=== PATIENT | female | born 1975 | race Caucasian/White ===

== ENCOUNTER 2017-04-20 17:20 | Inpatient (IN) | payer SELFPAY ==
[~2017-04-20] VITALS: Ht 170.2 cm; Wt 86.3 kg
[~2017-04-20 17:20] MED LIST: HYDR10TA16 PO; LORT5TAB PO; PROM25SU8 PO; Z.0.NO CURRENT MEDS
[2017-04-20 17:26] VITALS: BP 149/85; PULSE 93; RESP 15; TEMP 98.2; O2SAT 100
[2017-04-20 18:43] LABS: GLUCOSE,URINE NEG (NEG); KETONE, URINE NEG (NEG); NITRITE,URINE NEG (NEG)
--- NOTE | 2017-04-20 18:44 | PD ---
HPI Chief Complaint: Jaundice Time Seen by Provider: 17:37 Travel History International Travel<30 days: No Contact w/Intl Traveler<30days: No Traveled to known affect area: No History of Present Illness HPI 42-year-old female complains of abdominal pain, itching rash. Patient states that she had history of fracture clavicle in the past. Patient was given oxycodone for pain. Patient continued to take oxycodone for the past few years. Patient to get up oxycodone a year ago and started taking Suboxone. Patient stopped Suboxone about 2 weeks ago and went back to oxycodone again. Patient states that she takes oxycodone about 4 times a day. Patient states that she obtains the medication on the street. Patient denies any alcohol abuse. Patient denies other illicit drug abuse. Patient denies any headache. Patient denies any chest pain or shortness of breath. Patient states abdominal pain and cramping pain diffuse over the abdomen. Patient denies any pain radiation. Patient denies any dysuria or frequency. Patient denies any vaginal discharge or bleeding. Patient denies any fever chills. Patient denies any history hepatitis. Patient denies any chest recent history of travel. Patient states that she had dark urine recently. Patient also has been taking HydroxyCut, [id number] dietary supplement. PFSH Past Medical History ?: Not Social History Alcohol Use: Yes (WEEKENDS) Tobacco Use: Yes (ONLYWHEN I DRINK) Substance Use: No Allergies-Medications (Allergen,Severity, Reaction): Coded Allergies: No Known Allergies (Verified , 04/20/17) Reported Meds & Prescriptions Reported Meds & Active Scripts Active No Active Prescriptions or Reported Medications Review of Systems General / Constitutional: No: Fever Eyes: No: Visual changes HENT: No: Headaches Cardiovascular: No: Chest Pain or Discomfort Respiratory: No: Shortness of Breath Gastrointestinal: Positive: Abdominal Pain Genitourinary: No: Dysuria Musculoskeletal: No: Pain Skin: Positive Rash, Positive Itching Neurologic: No: Weakness Psychiatric: No: Depression Endocrine: No: Polydipsia Hematologic/Lymphatic: No: Easy Bruising Physical Exam Narrative GENERAL: Well-nourished, well-developed patient. SKIN: Focused skin assessment warm/dry. Jaundiced HEAD: Normocephalic. EYES: Bilateral scleral icterus. No injection or drainage. NECK: Supple, trachea midline. No JVD or lymphadenopathy. CARDIOVASCULAR: Regular rate and rhythm without murmurs, gallops, or rubs. RESPIRATORY: Breath sounds equal bilaterally. No accessory muscle use. GASTROINTESTINAL: Abdomen soft, non-tender, nondistended. MUSCULOSKELETAL: No cyanosis, or edema. BACK: Nontender without obvious deformity. No CVA tenderness. Neurologic exam normal. Data Data Last Documented VS Vital Signs Date Time Temp Pulse Resp B/P Pulse Ox O2 Delivery O2 Flow Rate FiO2 04/20/17 19:17 16 93 Room Air 04/20/17 19:17 92 148/84 04/20/17 17:26 98.2 Orders Complete Blood Count With Diff (04/20/17 17:41) Comprehensive Metabolic Panel (04/20/17 17:41) Prothrombin Time / Inr (Pt) (04/20/17 17:41) Act Partial Throm Time (Ptt) (04/20/17 17:41) Lipase (04/20/17 17:41) Urinalysis - C+S If Indicated (04/20/17 17:41) Ammonia (04/20/17 17:41) Ct Abd/Pel W Iv Contrast(Rout) (04/20/17 17:41) Iv Access Insert/Monitor (04/20/17 17:41) Hepatitis Profile (04/20/17 17:41) Iohexol 350 Inj (Omnipaque 350 Inj) (04/20/17 19:49) Sodium Chlor 0.9% 1000 Ml Inj (Ns 1000 M (04/20/17 20:15) Pantoprazole Inj (Protonix Inj) (04/20/17 20:15) Ondansetron Inj (Zofran Inj) (04/20/17 20:15) Admit Order (Ed Use Only) (04/20/17 20:22) Labs Laboratory Tests Test 04/20/17 04/20/17 18:20 18:25 Urine Color YELLOW Urine Turbidity CLEAR Urine pH 6.0 Urine Specific [place] 1.004 Urine Protein NEG mg/dL Urine Glucose (UA) NEG mg/dL Urine Ketones NEG mg/dL Urine Occult Blood MOD Urine Nitrite NEG Urine Bilirubin SMALL Urine Leukocyte Esterase TRACE Urine RBC 0-3 /hpf Urine WBC 3-5 /hpf Urine Squamous Epithelial 0-5 /hpf Cells Urine Amorphous Sediment SMALL Urine Bacteria FEW /hpf Microscopic Urinalysis Comment CULT NOT INDICATED White Blood Count 4.9 TH/MM3 Red Blood Count 4.24 MIL/MM3 Hemoglobin 12.3 GM/DL Hematocrit 37.2 % Mean Corpuscular Volume 87.7 FL Mean Corpuscular Hemoglobin 28.9 PG Mean Corpuscular Hemoglobin 33.0 % Concent Red Cell Distribution Width 12.7 % Platelet Count 308 TH/MM3 Mean Platelet Volume 7.8 FL Neutrophils (%) (Auto) 64.7 % Lymphocytes (%) (Auto) 23.1 % Monocytes (%) (Auto) 9.4 % Eosinophils (%) (Auto) 1.9 % Basophils (%) (Auto) 0.9 % Neutrophils # (Auto) 3.2 TH/MM3 Lymphocytes # (Auto) 1.1 TH/MM3 Monocytes # (Auto) 0.5 TH/MM3 Eosinophils # (Auto) 0.1 TH/MM3 Basophils # (Auto) 0.0 TH/MM3 CBC Comment DIFF FINAL Differential Comment Prothrombin Time 10.0 SEC Prothromb Time International 0.9 RATIO Ratio Activated Partial 26.1 SEC Thromboplast Time Sodium Level 140 MEQ/L Potassium Level 3.7 MEQ/L Chloride Level 104 MEQ/L Carbon Dioxide Level 29.4 MEQ/L Anion Gap 7 MEQ/L Blood Urea Nitrogen 6 MG/DL Creatinine 0.78 MG/DL Estimat Glomerular Filtration 82 ML/MIN Rate Random Glucose 107 MG/DL Calcium Level 9.1 MG/DL Total Bilirubin 5.4 MG/DL Aspartate Amino Transf 61 U/L (AST/SGOT) Alanine Aminotransferase 150 U/L (ALT/SGPT) Alkaline Phosphatase 195 U/L Ammonia 15 MCMOL/L Total Protein 7.8 GM/DL Albumin 3.9 GM/DL Lipase 119 U/L [facility] Medical Decision Making Medical Screen Exam Complete: Yes Emergency Medical Condition: Yes Interpretation(s) 1950 p.m. CBC within normal limit. Total bili 5.4. AST 61. ALT 150. Alkaline phosphatase 195. Ammonia 15. Hepatitis profile pending. Last Impressions Abdomen/Pelvis CT 04/20/17 4963 Signed Impressions: Service Date/Time: Thursday, April 20, 2017 19:14 - CONCLUSION: 1. Intrahepatic and extrahepatic biliary dilatation secondary to a 4 mm common bile duct stone at the level of the ampulla. Multiple calcified gallstones are seen. 2. Multiple low-density masses involving the uterus likely related to fibroids. These can be further assessed with pelvic sonography. James Wilder Jr., MD Differential Diagnosis Differential diagnosis including hepatitis, cholecystitis, common bile duct obstruction, cholangitis. Narrative Course 42-year-old female with history of oxycodone abuse, complains of itching rash and abdominal pain. Patient is jaundiced. Normal saline solution 1 25 cc an hour. Protonix 40 mg IV. Zofran 4 mg IV. Spoke with Dr. Bah, GI on-call today. Diagnosis Primary Impression: Common bile duct obstruction Additional Impression: Cholelithiasis Qualified Code: K80.21 - Calculus of gallbladder with biliary obstruction but without cholecystitis Admitting Information Admitting Physician Requests: Admit Scripts No Active Prescriptions or Reported Meds Christopher Pompa MD Apr 20, 2017 18:44
[2017-04-20 18:51] LABS: AUTOMATED NEUTROPHIL # 3.2 TH/MM3 (1.8-7.7); BASOPHIL % 0.9 % (0.0-2.0); EOSINOPHIL # 0.1 TH/MM3 (0-0.4); EOSINOPHIL % 1.9 % (0.0-4.0); HEMATOCRIT 37.2 % (35.0-46.0); HEMO FLAGS DIFF FINAL; LYMPH % 23.1 % (9.0-44.0); LYMPHOCYTE # 1.1 TH/MM3 (1.0-4.8); MEAN CELL VOLUME 87.7 FL (80.0-100.0); MEAN CORPUSCULAR HEMOGLOBIN 28.9 PG (27.0-34.0); MONO % 9.4 % (0.0-8.0); NEUT % 64.7 % (16.0-70.0); PLATELET COUNT 308 TH/MM3 (150-450); RED BLOOD COUNT 4.24 MIL/MM3 (4.00-5.30); RED CELL DISTRIBUTION WIDTH 12.7 % (11.6-17.2); WHITE BLOOD COUNT 4.9 TH/MM3 (4.0-11.0)
[2017-04-20 18:54] LABS: BLOOD, URINE MOD (NEG); URINE COLOR YELLOW (YELLW/STRAW)
[2017-04-20 18:54] LABS: CHLORIDE 104 MEQ/L (98-107); POTASSIUM 3.7 MEQ/L (3.5-5.1); SODIUM (NA) 140 MEQ/L (136-145)
[2017-04-20 18:55] LABS: SQUAMOUS EPITHELIAL CELL URINE 0-5 /hpf (0-5)
[2017-04-20 18:56] LABS: RBC, URINE 0-3 /hpf (0-3)
[2017-04-20 18:57] LABS: BACTERIA, URINE FEW /hpf; COMMENT (UR) CULT NOT INDICATED; CULTURE IF INDICATED CULT NOT INDICATED
[2017-04-20 18:58] LABS: ANION GAP 7 MEQ/L (5-15); BICARBONATE 29.4 MEQ/L (21.0-32.0); BLOOD UREA NITROGEN 6 MG/DL (7-18)
[2017-04-20 19:00] LABS: APTT (PATIENT) 26.1 SEC (24.3-30.1); INTERNATIONAL NORMALIZED RATIO 0.9 RATIO
[2017-04-20 19:01] LABS: ALT (GPT) 150 U/L (10-53); AST (GOT) 61 U/L (15-37); GLOMERULAR FILTRATION RATE 82 ML/MIN (>89)
[2017-04-20 19:02] LABS: TOTAL BILIRUBIN ADULT 5.4 MG/DL (0.2-1.0)
[2017-04-20 19:04] LABS: ALKALINE PHOSPHATASE 195 U/L (45-117)
[2017-04-20 19:17] VITALS: BP 148/84; PULSE 92; RESP 18; O2SAT 93
[2017-04-20] MEDS ORDERED: IOHEXOL 350 MG/ML 10 ML VIAL (for RAD DIAG) IV ONE (19:49)
--- NOTE | 2017-04-20 19:57 | RADRPT ---
EXAM DATE/TIME: 04/20/2017 19:14 [place] COMPARISON: No previous studies available for comparison. INDICATIONS : Jaundice and itchy. IV CONTRAST: 100 cc Omnipaque 350 (iohexol) IV ORAL CONTRAST: No oral contrast ingested. RADIATION DOSE: 15.79 CTDIvol (mGy) MEDICAL HISTORY : None SURGICAL HISTORY : None. ENCOUNTER: Initial ACUITY: 1 week PAIN SCALE: 7/10 LOCATION: Bilateral upper quadrant TECHNIQUE: Volumetric scanning of the abdomen and pelvis was performed. Using automated exposure control and ad justment of the mA and/or kV according to patient size, radiation dose was kept as low as reasonably achievable to obtain optimal diagnostic quality images. DICOM format image data is available electro nically for review and comparison. FINDINGS: LOWER LUNGS: The visualized lower lungs are clear. LIVER: Intrahepatic and extrahepatic biliary dilatation is observed. The common bile duct reaches a maximum diameter of 16 mm. There is a 4 mm partially calcified stone involving the inferior common bile duct. Multiple calcified gallstones are seen within the gallbladder. No pericholecystic fluid appreciated. The liver is without mass. Portal vein is patent. SPLEEN: Normal size without lesion. PANCREAS: Within normal limits. KIDNEYS: Normal in size and shape. There is no mass, stone or hydronephrosis. ADRENAL GLANDS: Within normal limits. VASCULAR: There is no aortic aneurysm. BOWEL/MESENTERY: The stomach, small bowel, and colon demonstrate no acute abnormality. There is no free intraperitone al air or fluid. ABDOMINAL WALL: Within normal limits. RETROPERITONEUM: There is no lymphadenopathy. BLADDER: No wall thickening or mass. REPRODUCTIVE: The uterus has a lobulated contour and contains multiple low density masses. The largest involves the right lateral body/fundus and measures 4.9 cm. No fluid within the cul-de-sac. INGUINAL: There is no lymphadenopathy or hernia. MUSCULOSKELETAL: Within normal limits for patient age. CONCLUSION: 1. Intrahepatic and extrahepatic biliary dilatation secondary to a 4 mm common bile duct stone at the level of the ampulla. Multiple calcified gallstones are seen. 2. Multiple low-density masses involving the uterus likely related to fibroids. These can be further assessed with pelvic sonography. James Wilder Jr., MD on April 20, 2017 at 19:51 Board Certified Radiologist. This report was verified electronically.
[2017-04-20] MEDS ORDERED: PANTOPRAZOLE SODIUM 40 MG VIAL IV PUSH ONE (20:15)
[2017-04-20] MEDS ORDERED: ONDANSETRON HCL 4 MG/2 ML VIAL IV PUSH ONE (20:15)
[2017-04-20] MEDS: SODIUM CHLOR 0.9% 1000 ML INJ 1,000 ML IV SCH (20:23)
[2017-04-20 20:24] VITALS: BP 139/81; PULSE 84; RESP 16; O2SAT 98
[2017-04-20] MEDS ORDERED: ACETAMINOPHEN 325 MG TAB PO PRN (21:00)
[2017-04-20] MEDS ORDERED: MAGNESIUM HYDROXIDE SUSP 30 ML CUP PO PRN (21:00)
[2017-04-20] MEDS ORDERED: SENNOSIDES 8.6 MG TAB PO PRN (21:00)
[2017-04-20] MEDS ORDERED: ONDANSETRON HCL 4 MG/2 ML VIAL IVP PRN (21:00)
[2017-04-20] MEDS ORDERED: NALOXONE HCL 0.4 MG/ML AMP IV PRN (21:00)
[2017-04-20 21:30] VITALS: BP 134/80; PULSE 87; RESP 16; O2SAT 99
[2017-04-20] MEDS: SODIUM CHLORIDE 0.9% FLUSH 10 ML FLUSH IV FLUSH SCH (22:13)
[2017-04-20 23:09] VITALS: BP 142/82
[2017-04-20 23:55] VITALS: BP 126/73; PULSE 95; RESP 17; TEMP 98.7; O2SAT 97
[2017-04-21 04:10] VITALS: BP 129/77; PULSE 82; RESP 16; TEMP 97.9; O2SAT 99
[2017-04-21] MEDS: SODIUM CHLOR 0.9% 1000 ML INJ 1,000 ML IV SCH (04:15)
--- NOTE | 2017-04-21 06:20 | HHI.HP ---
[facility] No Primary Care Physician Admission Diagnosis common bile duct obstruction Diagnoses: Travel History International Travel<30 Days: No Contact w/Intl Traveler <30 Da: No Traveled to Known Affected Are: No History of Present Illness History from patient, ER physician communication, and review of medical records. Patient reported that she came to the hospital because she was having abdominal pain for a whole week. She reports subjective fevers. She also started having itching. 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 The physician therefore told her to come to the hospital. Patient denies any nausea or vomiting. She denies any diarrhea. She however reports of burning in her urine. Denies any blood in her urine or in her stool. Patient initially presented to [place] [facility]. Workup there revealed elevated LFTs Review of Systems Except as stated in HPI: all other systems reviewed are Neg Past Family Social History Past Medical History none secondary to prolonged heat exhaustion/exposure Past Surgical History There are had surgery for any complications. Reported Medications Patient's medications listed in EMRreviewed. Patient does have a list of her medications with her. This was not placed on med rec yet. Nurse is informed to do so. Allergies: Coded Allergies: No Known Allergies (Verified , 04/20/17) Family History dad- heart issues; from [place] at age 50 Social History used to smoke, quit 6 yrs ago used to drink socially during week and heavily on weekends, but quit all that 6 yrs ago denies any drug abuse Physical Exam Vital Signs Vital Signs Date Time Temp Pulse Resp B/P Pulse Ox O2 Delivery O2 Flow Rate FiO2 04/21/17 04:10 97.9 82 16 129/77 99 04/20/17 23:55 98.7 95 17 126/73 97 04/20/17 23:09 90 16 142/82 94 04/20/17 21:45 16 94 Room Air 04/20/17 21:30 87 16 134/80 99 Room Air 04/20/17 20:24 84 16 139/81 98 Room Air 04/20/17 19:17 16 93 Room Air 04/20/17 19:17 92 18 148/84 93 04/20/17 17:26 98.2 93 15 149/85 100 Physical Exam GENERAL: This is a well-nourished, well-developed patient, in no apparent distress. SKIN: No rashes, ecchymoses or lesions. Cool and dry. HEAD: Atraumatic. Normocephalic. No temporal or scalp tenderness. EYES: No scleral icterus. No injection or drainage. ABDOMEN: Soft, nontender, no rebound. No guarding. MUSCULOSKELETAL: Extremities without clubbing, cyanosis, or edema. . No calf tenderness. NEUROLOGICAL: Awake and alert.Motor and sensory grossly within normal limits. Laboratory Laboratory Tests Test 04/20/17 04/20/17 18:20 18:25 Urine Color YELLOW Urine Turbidity CLEAR Urine pH 6.0 Urine Specific [place] 1.004 Urine Protein NEG Urine Glucose (UA) NEG Urine Ketones NEG Urine Occult Blood MOD Urine Nitrite NEG Urine Bilirubin SMALL Urine Leukocyte Esterase TRACE Urine RBC 0-3 Urine WBC 3-5 Urine Squamous Epithelial 0-5 Cells Urine Amorphous Sediment SMALL Urine Bacteria FEW Microscopic Urinalysis Comment CULT NOT INDICATED White Blood Count 4.9 Red Blood Count 4.24 Hemoglobin 12.3 Hematocrit 37.2 Mean Corpuscular Volume 87.7 Mean Corpuscular Hemoglobin 28.9 Mean Corpuscular Hemoglobin 33.0 Concent Red Cell Distribution Width 12.7 Platelet Count 308 Mean Platelet Volume 7.8 Neutrophils (%) (Auto) 64.7 Lymphocytes (%) (Auto) 23.1 Monocytes (%) (Auto) 9.4 Eosinophils (%) (Auto) 1.9 Basophils (%) (Auto) 0.9 Neutrophils # (Auto) 3.2 Lymphocytes # (Auto) 1.1 Monocytes # (Auto) 0.5 Eosinophils # (Auto) 0.1 Basophils # (Auto) 0.0 CBC Comment DIFF FINAL Differential Comment Prothrombin Time 10.0 Prothromb Time International 0.9 Ratio Activated Partial 26.1 Thromboplast Time Sodium Level 140 Potassium Level 3.7 Chloride Level 104 Carbon Dioxide Level 29.4 Anion Gap 7 Blood Urea Nitrogen 6 Creatinine 0.78 Estimat Glomerular Filtration 82 Rate Random Glucose 107 Calcium Level 9.1 Total Bilirubin 5.4 Aspartate Amino Transf 61 (AST/SGOT) Alanine Aminotransferase 150 (ALT/SGPT) Alkaline Phosphatase 195 Ammonia 15 Total Protein 7.8 Albumin 3.9 Lipase 119 Result Diagram: 04/20/17 1825 04/20/17 1825 Imaging Last 48 hours Impressions Abdomen/Pelvis CT 04/20/17 1741 Signed Impressions: Service Date/Time: Thursday, April 20, 2017 19:14 - CONCLUSION: 1. Intrahepatic and extrahepatic biliary dilatation secondary to a 4 mm common bile duct stone at the level of the ampulla. Multiple calcified gallstones are seen. 2. Multiple low-density masses involving the uterus likely related to fibroids. These can be further assessed with pelvic sonography. James Wilder Jr., MD Assessment and Plan Assessment and Plan Impression: Choledocholithiasis CBD stone Obstructive jaundice secondary to above Plan: Nothing by mouth. ERCP in a.m. GI was consulted. Pain control. DVT prophylaxiswith SCD. Discussed Condition With Patient, ER physician, patient's nurse Physician Certification 2 Midnight Certification Type: Admission for Inpatient Services Order for Inpatient Services The services are ordered in accordance with Medicare regulations or non- Medicare payer requirements, as applicable. In the case of services not specified as inpatient-only, they are appropriately provided as inpatient services in accordance with the 2-midnight benchmark. Estimated LOS (days): 2 days is the estimated time the patient will need to remain in the hospital, assuming treatment plan goals are met and no additional complications. Post-Hospital Plan: Home Aurora Flores MD Apr 21, 2017 06:20
[2017-04-21 07:59] VITALS: BP 130/71; PULSE 87; RESP 14; TEMP 98.8; O2SAT 98
--- NOTE | 2017-04-21 08:32 | PD.CONS ---
HPI History of Present Illness This is a 42 year old female who presented to the ER for evaluation of abdominal pain with associated itching. Last week, she started having severe abdominal cramping. She is not really able to describe this or the location of the pain, but states it was intermittent and worse than labor pains. She denies any radiation. The pain was aggravated by any po intake. She denies any associated fevers or chills, nausea, vomiting, or diarrhea. She was constipated at the time (no bm x 8 days) and thought that this was contributing to her pain. She took an OTC laxative on April 14 (pill- she believes Dulcolax ) and then had a good bowel movement. Initially, she passed dark stool and this then turned plastic mixer in color. Afterwards, her pain resolved. However, her pain returned as soon as she tried to eat something. She states that her pain improved over the weekend and went away by Wednesday, but she then started having intense itching. Yesterday she was at work and reports that Dr. Pompa came by and told her she was jaundiced and needed to go to the ER for further evaluation. Abdomen/Pelvis CT (04/20/17)----> 1. Intrahepatic and extrahepatic biliary dilatation secondary to a 4 mm common bile duct stone at the level of the ampulla. Multiple calcified gallstones are seen. 2. Multiple low-density masses involving the uterus likely related to fibroids. These can be further assessed with pelvic sonography. She was also noted to have elevated LFTs with T. Bili 5.4, AST 561, ALT 150, Alk Phosph 195, Lipase 119, WBC 4.9. She denies any history of gallbladder issues. PFSH Past Medical History Hx heat exhaustion/exposure Past Surgical History Denies Coded Allergies: No Known Allergies (Verified , 04/20/17) Medications Allergies Coded Allergies Type Severity Reaction Last Updated Verified No Known Allergies 04/20/17 Yes Active Scripts Medications Dose Route/Sig Days Date Category No Active Prescriptions or Reported Medications Rx Family History Father had CAD, from [place] Social History Quit smoking 6 years ago Quit drinking 6 years ago, states she occasionally will drink No illicit drug use. Review of Systems Constitutional: COMPLAINS OF: Fatigue, DENIES: Fever, Weight loss, Chills Respiratory: DENIES: Cough Cardiovascular: DENIES: Chest pain Gastrointestinal: COMPLAINS OF: Abdominal pain, Black stools, Constipation, Anorexia, DENIES: Bloody stools, Diarrhea, Nausea, Vomiting, Swelling of Abdomen, Heartburn, Hematemesis Musculoskeletal: DENIES: Back pain Integumentary: COMPLAINS OF: Jaundice Hematologic/lymphatic: DENIES: Bruising Neurologic: DENIES: Headache Psychiatric: DENIES: Confusion GI Exam Vitals I&O Vital Signs Date Time Temp Pulse Resp B/P Pulse Ox O2 Delivery O2 Flow Rate FiO2 04/21/17 07:59 98.8 87 14 130/71 98 04/21/17 04:10 97.9 82 16 129/77 99 04/20/17 23:55 98.7 95 17 126/73 97 04/20/17 23:09 90 16 142/82 94 04/20/17 21:45 16 94 Room Air 04/20/17 21:30 87 16 134/80 99 Room Air 04/20/17 20:24 84 16 139/81 98 Room Air 04/20/17 19:17 16 93 Room Air 04/20/17 19:17 92 18 148/84 93 04/20/17 17:26 98.2 93 15 149/85 100 Imaging Last Impressions Abdomen/Pelvis CT 04/20/17 1741 Signed Impressions: Service Date/Time: Thursday, April 20, 2017 19:14 - CONCLUSION: 1. Intrahepatic and extrahepatic biliary dilatation secondary to a 4 mm common bile duct stone at the level of the ampulla. Multiple calcified gallstones are seen. 2. Multiple low-density masses involving the uterus likely related to fibroids. These can be further assessed with pelvic sonography. James Wilder Jr., MD Laboratory Test 04/20/17 04/20/17 18:20 18:25 Urine Color YELLOW Urine Turbidity CLEAR Urine pH 6.0 Urine Specific [place] 1.004 Urine Protein NEG mg/dL Urine Glucose (UA) NEG mg/dL Urine Ketones NEG mg/dL Urine Occult Blood MOD Urine Nitrite NEG Urine Bilirubin SMALL Urine Leukocyte Esterase TRACE Urine RBC 0-3 /hpf Urine WBC 3-5 /hpf Urine Squamous Epithelial 0-5 /hpf Cells Urine Amorphous Sediment SMALL Urine Bacteria FEW /hpf Microscopic Urinalysis Comment CULT NOT INDICATED White Blood Count 4.9 TH/MM3 Red Blood Count 4.24 MIL/MM3 Hemoglobin 12.3 GM/DL Hematocrit 37.2 % Mean Corpuscular Volume 87.7 FL Mean Corpuscular Hemoglobin 28.9 PG Mean Corpuscular Hemoglobin 33.0 % Concent Red Cell Distribution Width 12.7 % Platelet Count 308 TH/MM3 Mean Platelet Volume 7.8 FL Neutrophils (%) (Auto) 64.7 % Lymphocytes (%) (Auto) 23.1 % Monocytes (%) (Auto) 9.4 % Eosinophils (%) (Auto) 1.9 % Basophils (%) (Auto) 0.9 % Neutrophils # (Auto) 3.2 TH/MM3 Lymphocytes # (Auto) 1.1 TH/MM3 Monocytes # (Auto) 0.5 TH/MM3 Eosinophils # (Auto) 0.1 TH/MM3 Basophils # (Auto) 0.0 TH/MM3 CBC Comment DIFF FINAL Differential Comment Prothrombin Time 10.0 SEC Prothromb Time International 0.9 RATIO Ratio Activated Partial 26.1 SEC Thromboplast Time Sodium Level 140 MEQ/L Potassium Level 3.7 MEQ/L Chloride Level 104 MEQ/L Carbon Dioxide Level 29.4 MEQ/L Anion Gap 7 MEQ/L Blood Urea Nitrogen 6 MG/DL Creatinine 0.78 MG/DL Estimat Glomerular Filtration 82 ML/MIN Rate Random Glucose 107 MG/DL Calcium Level 9.1 MG/DL Total Bilirubin 5.4 MG/DL Aspartate Amino Transf 61 U/L (AST/SGOT) Alanine Aminotransferase 150 U/L (ALT/SGPT) Alkaline Phosphatase 195 U/L Ammonia 15 MCMOL/L Total Protein 7.8 GM/DL Albumin 3.9 GM/DL Lipase 119 U/L Physical Examination HEENT: Normocephalic; atraumatic; + jaundice. CHEST: CTA CARDIAC: RRR. ABDOMEN: Soft, nondistended, nontender, no hepatosplenomegaly; bowel sounds are present in all four quadrants. EXTREMITIES: No clubbing, cyanosis, or edema. SKIN: Normal; no rash; no jaundice. 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 Assessment and Plan Plan ASSESSMENT: - Biliary obstruction, Choledocholithiasis. Abdominal pain associated with food intake since April 13. Started having pruritus on Wednesday. Was told that she was jaundiced and instructed to go to the ER. Abdomen/ Pelvis CT (04/20/17)----> 1. Intrahepatic and extrahepatic biliary dilatation secondary to a 4 mm common bile duct stone at the level of the ampulla. Multiple calcified gallstones are seen. 2. Multiple low- density masses involving the uterus likely related to fibroids. These can be further assessed with pelvic sonography. She was also noted to have elevated LFTs with T. Bili 5.4, AST 561, ALT 150, Alk Phosph 195, Lipase 119, WBC 4.9. No history of gallbladder issues. Will plan for ERCP with possible sphincterotomy, possible stent placement today. Consult GS. - Elevated LFTs secondary to above. Rpt labs pending - Cholelithiasis. Will consult GS for eval. for lap olya - Abdominal pain secondary to above. Pain management per attending - Constipation. PLAN: - Plan for ERCP with possible sphincterotomy, possible stent placement (Dr. Hidalgo) - Obtain consent - NPO - IVF - Pain management per attending - GS eval - Supportive care - Pt seen and examined by Dr. Jean and myself and this note is written on his behalf Gisselle Jeff Apr 21, 2017 08:32
[2017-04-21] MEDS ORDERED: diphenhydrAMINE HCL 25 MG CAP PO PRN (08:45)
[2017-04-21] MEDS: SODIUM CHLORIDE 0.9% FLUSH 10 ML FLUSH IV FLUSH SCH ×2 (09:00→21:00)
[2017-04-21 09:18] LABS: AUTOMATED NEUTROPHIL # 2.4 TH/MM3 (1.8-7.7); BASOPHIL % 0.9 % (0.0-2.0); EOSINOPHIL # 0.1 TH/MM3 (0-0.4); EOSINOPHIL % 2.8 % (0.0-4.0); HEMATOCRIT 36.4 % (35.0-46.0); HEMO FLAGS DIFF FINAL; LYMPH % 29.3 % (9.0-44.0); LYMPHOCYTE # 1.3 TH/MM3 (1.0-4.8); MEAN CELL VOLUME 87.3 FL (80.0-100.0); MEAN CORPUSCULAR HGB CONC 33.2 % (32.0-36.0); MONO % 11.3 % (0.0-8.0); NEUT % 55.7 % (16.0-70.0); PLATELET COUNT 269 TH/MM3 (150-450); RED BLOOD COUNT 4.17 MIL/MM3 (4.00-5.30); RED CELL DISTRIBUTION WIDTH 12.9 % (11.6-17.2); WHITE BLOOD COUNT 4.3 TH/MM3 (4.0-11.0)
[2017-04-21] MEDS ORDERED: HYDROmorphone HCL PF 1 MG/ML VIAL IV PUSH ONE (09:45)
[2017-04-21 09:47] LABS: ANION GAP 8 MEQ/L (5-15); AST (GOT) 61 U/L (15-37); BLOOD UREA NITROGEN 5 MG/DL (7-18); CHLORIDE 104 MEQ/L (98-107); GLOMERULAR FILTRATION RATE 115 ML/MIN (>89); POTASSIUM 3.2 MEQ/L (3.5-5.1); SODIUM (NA) 137 MEQ/L (136-145)
[2017-04-21 09:51] LABS: ALKALINE PHOSPHATASE 186 U/L (45-117); ALT (GPT) 130 U/L (10-53); TOTAL BILIRUBIN ADULT 5.5 MG/DL (0.2-1.0)
--- NOTE | 2017-04-21 11:12 | PD.CONS ---
cc: Mckinley Tompkins MD HPI Service General Surgery Consult Requested By Gisselle RIVERA Reason for Consult Abdominal pain; cholelithiasis; choledocholithiasis; 4 mm stone in CBD; Evaluate for laparoscopic cholecystectomy Primary Care Physician No Primary Care Physician History of Present Illness This is a 42-year-old female with no past medical history who comes emergency department with abdominal pain. She had a crampy type feeling that started last week. She does notice that the abdominal pain is worsened with eating. The pain is located on the right upper quadrant, 8/10, currently 4/10, better with pain meds. She does also report she has not had a bowel movement in [address] of abdomen and pelvis was obtained which showed intrahepatic and extrahepatic biliary to dilatation secondary to a 4 mm common bile duct stone. GI has been consult and a plan for an ERCP with stent placement today. The patient has remained nothing by mouth. A General Surgery consultation has been requested for evaluation of a laparoscopic cholecystectomy after ERCP. Review of Systems Constitutional: DENIES: Fever, Weight gain, Chills Endocrine: DENIES: Polydipsia, Polyuria, Polyphagia Eyes: DENIES: Blurred vision Ears, nose, mouth, throat: DENIES: Hearing loss Respiratory: DENIES: Cough Cardiovascular: DENIES: Chest pain Gastrointestinal: COMPLAINS OF: Abdominal pain, Constipation, Nausea, DENIES: Vomiting Genitourinary: DENIES: Urinary frequency Musculoskeletal: DENIES: Joint pain Integumentary: DENIES: Abnormal pigmentation Immunologic/allergic: DENIES: Eczema Neurologic: DENIES: Headache, Localized weakness Psychiatric: DENIES: Mood changes, Depression, Hallucinations Past Family Social History Past Medical History None Past Surgical History None Reported Medications Hydroxycut Allergies: Coded Allergies: No Known Allergies (Verified , 04/20/17) Active Ordered Medications Current Medications Medications (Trade) Dose Ordered Sig/Pancho Route Start Time Stop Time Status Last Admin (NS 1000 ml Inj) 1,000 ml @ 125 mls/hr Q8H IV 04/20/17 20:15 04/21/17 04:15 (NS Flush) 2 ml UNSCH PRN IV FLUSH 04/20/17 21:00 (NS Flush) 2 ml BID IV FLUSH 04/20/17 21:00 04/20/17 22:13 (Tylenol) 650 mg Q4H PRN PO 04/20/17 21:00 (Zofran Inj) 4 mg Q6H PRN IVP 04/20/17 21:00 (Narcan Inj) 0.4 mg UNSCH PRN IV 04/20/17 21:00 (Milk Of Morales Lioksana) 30 ml Q12H PRN PO 04/20/17 21:00 (Senokot) 17.2 mg Q12H PRN PO 04/20/17 21:00 (Benadryl) 25 mg Q6H PRN PO 04/21/17 08:45 04/21/17 10:36 Family History None Social History Denies tobacco use Denies EtOH use Denies illicit drug use Physical Exam Vital Signs Vital Signs Date Time Temp Pulse Resp B/P Pulse Ox O2 Delivery O2 Flow Rate FiO2 04/21/17 07:59 98.8 87 14 130/71 98 04/21/17 04:10 97.9 82 16 129/77 99 04/20/17 23:55 98.7 95 17 126/73 97 04/20/17 23:09 90 16 142/82 94 04/20/17 21:45 16 94 Room Air 04/20/17 21:30 87 16 134/80 99 Room Air 04/20/17 20:24 84 16 139/81 98 Room Air 04/20/17 19:17 16 93 Room Air 04/20/17 19:17 92 18 148/84 93 04/20/17 17:26 98.2 93 15 149/85 100 Physical Exam GENERAL: Pleasant 42 year old female resting in bed in no acute distress. SKIN: Warm and dry. HEAD: Atraumatic. Normocephalic. EYES: Pupils equal and round. No scleral icterus. No injection or drainage. ENT: No nasal bleeding or discharge. Mucous membranes pink and moist. NECK: Trachea midline. CARDIOVASCULAR: Regular rate and rhythm. RESPIRATORY: No accessory muscle use. Clear to auscultation. Breath sounds equal bilaterally. GASTROINTESTINAL: Abdomen soft,non distended; minimally tenderness with palpation. MUSCULOSKELETAL: Extremities without clubbing, cyanosis, or edema. No obvious deformities. NEUROLOGICAL: Awake and alert. No obvious cranial nerve deficits. Motor grossly within normal limits. Five out of 5 muscle strength in the arms and legs. Normal speech. PSYCHIATRIC: Appropriate mood and affect; insight and judgment normal. Laboratory Laboratory Tests Test 04/20/17 04/20/17 04/21/17 18:20 18:25 07:23 Urine Color YELLOW Urine Turbidity CLEAR Urine pH 6.0 Urine Specific [place] 1.004 Urine Protein NEG Urine Glucose (UA) NEG Urine Ketones NEG Urine Occult Blood MOD Urine Nitrite NEG Urine Bilirubin SMALL Urine Leukocyte Esterase TRACE Urine RBC 0-3 Urine WBC 3-5 Urine Squamous Epithelial 0-5 Cells Urine Amorphous Sediment SMALL Urine Bacteria FEW Microscopic Urinalysis Comment CULT NOT INDICATED White Blood Count 4.9 4.3 Red Blood Count 4.24 4.17 Hemoglobin 12.3 12.1 Hematocrit 37.2 36.4 Mean Corpuscular Volume 87.7 87.3 Mean Corpuscular Hemoglobin 28.9 29.0 Mean Corpuscular Hemoglobin 33.0 33.2 Concent Red Cell Distribution Width 12.7 12.9 Platelet Count 308 269 Mean Platelet Volume 7.8 8.1 Neutrophils (%) (Auto) 64.7 55.7 Lymphocytes (%) (Auto) 23.1 29.3 Monocytes (%) (Auto) 9.4 11.3 Eosinophils (%) (Auto) 1.9 2.8 Basophils (%) (Auto) 0.9 0.9 Neutrophils # (Auto) 3.2 2.4 Lymphocytes # (Auto) 1.1 1.3 Monocytes # (Auto) 0.5 0.5 Eosinophils # (Auto) 0.1 0.1 Basophils # (Auto) 0.0 0.0 CBC Comment DIFF FINAL DIFF FINAL Differential Comment Prothrombin Time 10.0 Prothromb Time International 0.9 Ratio Activated Partial 26.1 Thromboplast Time Sodium Level 140 137 Potassium Level 3.7 3.2 Chloride Level 104 104 Carbon Dioxide Level 29.4 25.0 Anion Gap 7 8 Blood Urea Nitrogen 6 5 Creatinine 0.78 0.58 Estimat Glomerular Filtration 82 115 Rate Random Glucose 107 91 Calcium Level 9.1 9.1 Total Bilirubin 5.4 5.5 Aspartate Amino Transf 61 61 (AST/SGOT) Alanine Aminotransferase 150 130 (ALT/SGPT) Alkaline Phosphatase 195 186 Ammonia 15 Total Protein 7.8 7.0 Albumin 3.9 3.4 Lipase 119 Result Diagram: 7/15/17 0718 04/24/17 0718 Imaging Last 48 hours Impressions Abdomen/Pelvis CT 04/20/17 1741 Signed Impressions: Service Date/Time: Thursday, April 20, 2017 19:14 - CONCLUSION: 1. Intrahepatic and extrahepatic biliary dilatation secondary to a 4 mm common bile duct stone at the level of the ampulla. Multiple calcified gallstones are seen. 2. Multiple low-density masses involving the uterus likely related to fibroids. These can be further assessed with pelvic sonography. James Wilder Jr., MD Assessment and Plan Assessment and Plan 42 year old female with cholelithiasis; choledocholithiasis; 4 mm common bile duct stone -ERCP with stent placement today -NPO for ERCP -Plan for laparoscopic cholecystectomy tomorrow with Dr. Tompkins -Obtain consents -NPO after MN -Labs in the AM -Thank you for this consult Discussed Condition With Dr. Tompkins Ms. Kandl Attending Statement patient seen at bedside discussed with patient regarding gallbladder removal after ercp patient understands risks and alternatives Attestation The exam, history, and the medical decision-making described in the above note were completed with the assistance of the mid-level provider. I reviewed and agree with the findings presented. I attest that I had a [id number] encounter with the patient on the same day, and personally performed and documented my assessment and findings in the medical record. Kate Ferro Apr 21, 2017 11:12 Mckinley Tompkins MD Apr 26, 2017 20:36
[2017-04-21 11:44] VITALS: BP 118/69; PULSE 82; RESP 16; TEMP 98.8; O2SAT 98
[2017-04-21] MEDS ORDERED: IOHEXOL 350 MG/ML 100 ML BTL (for RAD DIAG) OTHER ONE (16:20)
--- NOTE | 2017-04-21 16:43 | GIPROC ---
[facility] [address] [facility]. [facility], [address] ERCP PROCEDURE REPORT EXAM DATE: 04/21/2017 PATIENT NAME: Kym Carroll MR #: [id number] BIRTHDATE: 1975 ATTENDING: Dexter Hidalgo MD ORDER #: [id number] GANG PUSHER: Roverto Gillis and Kiara Beck STATUS: inpatient INDICATIONS: The patient is a 42 yr old female here for an ERCP due to abdominal pain of suspected biliary origin and established bile duct stone(s) PROCEDURE PERFORMED: ERCP with sphincterotomy/papillotomy ERCP with removal of calculus/calculi MEDICATIONS: Per Anesthesia and None. CONSENT: The patient understands the risks and benefits of the procedure and understands that these risks include, but are not limited to: sedation, allergic reaction, infection, perforation and/or bleeding. Alternative means of evaluation and treatment include, among others: physical exam, x-rays, and/or surgical intervention. The patient elects to proceed with this endoscopic procedure. medical equipment was checked for proper function. Hand hygiene and appropriate measures for infection prevention was taken. After the risks, benefits and alternatives of the procedure were thoroughly explained, Informed was verified, confirmed and timeout was successfully executed by the treatment team. With the patient in left semi-prone position, medications were administered intravenously.The Pentax [id number] was passed from the mouth into the esophagus and further advanced from the esophagus into the stomach. From stomach scope was directed to the second portion of the duodenum. Major papilla was aligned with the duodenoscope. The scope position was confirmed fluoroscopically. Rest of the findings/therapeutics are given below. The scope was then completely withdrawn from the patient and the procedure completed. The pulse, BP, and O2 saturation were monitored and documented by the physician and the nursing staff throughout the entire procedure. The patient was cared for as planned according to standard protocol. The patient was then discharged to recovery in stable condition and with appropriate post procedure care. A single stone was seen in the distal common bile duct. 5mm stone in distal cbd, 8 mm sphincterotomy, balloon sweep with 11.5 mm balloon. Stone removed. 8 mm duct. ADVERSE EVENT: There were no complications. IMPRESSIONS: 5mm stone in distal cbd, 8 mm sphincterotomy, balloon sweep with 11.5 mm balloon. Stone removed. 8 mm duct RECOMMENDATIONS: 1. Cholecystectomy 2. Liver enzymes REPEAT EXAM: Return as needed for ERCP Dexter Hidalgo MD eSigned: Dexter Hidalgo MD 04/21/2017 4:42 PM cc:
--- NOTE | 2017-04-21 16:52 | RADRPT ---
EXAM DATE/TIME: 04/21/2017 16:22 [place] COMPARISON: No previous studies available for comparison. INDICATIONS : Obstruction, spincterotomy and stone removal. FLUORO TIME: 1.27 minutes IMAGE COUNT: 3 CONTRAST: Instilled by Ordering Physician MEDICAL HISTORY : Cholelithiasis. SURGICAL HISTORY : None. ENCOUNTER: Initial ACUITY: 1 day PAIN SCORE: Non-responsive. LOCATION: Right upper quadrant FINDINGS: ERCP imaging demonstrates a dilated common bile duct with at least 2 filling defects just above the l evel of the ampulla. There are several filling defects seen within the proper hepatic duct as well. F inal imaging demonstrates stone extraction with good drainage from the common bile duct. CONCLUSION: ERCP as above. Vimal Almazan MD on April 21, 2017 at 16:50 Board Certified Radiologist. This report was verified electronically.
[2017-04-21] MEDS ORDERED: DO NOT ADM ANY ANTICOAGULANT DRUGS PRN (17:30)
[2017-04-21] MEDS ORDERED: PROPOFOL 200 MG/20 ML AMP IV ONE (17:49)
[2017-04-21] MEDS: POTASSIUM CHLOR 10 MEQ PREMIX 100 ML IV SCH ×2 (19:00→19:31)
[2017-04-21] MEDS: PANTOPRAZOLE SODIUM 40 MG VIAL IV PUSH SCH (19:31)
[2017-04-21] MEDS: D5-NS + KCL 20 MEQ INJ 1,000 ML IV SCH (19:31)
[2017-04-21 20:54] VITALS: BP 136/69; PULSE 78; RESP 18; TEMP 98.1; O2SAT 97
[2017-04-21] MEDS: HYDROmorphone HCL PF 1 MG/ML VIAL IV PUSH PRN (22:42)
[2017-04-22] MEDS: D5-NS + KCL 20 MEQ INJ 1,000 ML IV SCH ×3 (04:00→21:50)
[2017-04-22] MEDS: SODIUM CHLORIDE 0.9% FLUSH 10 ML FLUSH IV FLUSH PRN ×2 (04:37→20:43)
[2017-04-22 05:25] VITALS: BP 130/74; PULSE 74; RESP 18; TEMP 97.9; O2SAT 97
[2017-04-22 08:10] VITALS: BP 108/65; PULSE 72; RESP 16; TEMP 98.1; O2SAT 97
[2017-04-22] MEDS: SODIUM CHLORIDE 0.9% FLUSH 10 ML FLUSH IV FLUSH SCH ×2 (08:23→20:44)
[2017-04-22 08:52] LABS: AUTOMATED NEUTROPHIL # 2.6 TH/MM3 (1.8-7.7); BASOPHIL % 0.6 % (0.0-2.0); EOSINOPHIL # 0.1 TH/MM3 (0-0.4); EOSINOPHIL % 1.3 % (0.0-4.0); HEMATOCRIT 35.2 % (35.0-46.0); HEMO FLAGS DIFF FINAL; MEAN CELL VOLUME 85.9 FL (80.0-100.0); MEAN CORPUSCULAR HEMOGLOBIN 29.1 PG (27.0-34.0); MEAN CORPUSCULAR HGB CONC 33.8 % (32.0-36.0); MONO % 10.5 % (0.0-8.0); NEUT % 62.6 % (16.0-70.0); PLATELET COUNT 264 TH/MM3 (150-450); RED CELL DISTRIBUTION WIDTH 12.6 % (11.6-17.2); WHITE BLOOD COUNT 4.1 TH/MM3 (4.0-11.0)
[2017-04-22 09:16] LABS: ALT (GPT) 126 U/L (10-53); ANION GAP 5 MEQ/L (5-15); AST (GOT) 63 U/L (15-37); BICARBONATE 31.6 MEQ/L (21.0-32.0); BLOOD UREA NITROGEN 6 MG/DL (7-18); CHLORIDE 105 MEQ/L (98-107); GLOMERULAR FILTRATION RATE 103 ML/MIN (>89); POTASSIUM 3.6 MEQ/L (3.5-5.1); SODIUM (NA) 142 MEQ/L (136-145)
[2017-04-22 09:19] LABS: ALKALINE PHOSPHATASE 175 U/L (45-117); TOTAL BILIRUBIN ADULT 3.4 MG/DL (0.2-1.0)
[2017-04-22] MEDS ORDERED: HYDROmorphone HCL PF 2 MG/ML VIAL ONE (10:00)
[2017-04-22] MEDS ORDERED: ACETAMINOPHEN 1000 MG/100 ML VIAL IV ONE (10:00)
[2017-04-22] MEDS ORDERED: SUGAMMADEX SODIUM 200 MG/2 ML VIAL IV PUSH ONE ×2 (10:06)
[2017-04-22] MEDS ORDERED: ceFAZolin INJ 1,000 MG VIAL IV ONE (10:17)
[2017-04-22] MEDS ORDERED: LIDOCAINE 1%/EPINEPHrine 1:100,000 SOLN 20 ML VIAL INFIL ONE (10:18)
[2017-04-22] MEDS ORDERED: BUPIVACAINE/EPINEPHRINE 0.5% PF 10 ML VIAL INFIL ONE (10:18)
--- NOTE | 2017-04-22 11:08 | HHI.PR ---
Immediate Post Op Note Procedure Date: Apr 22, 2017 Pre Op Diagnosis: choledocholithiasis, symptomatic cholelithiasis Post Op Diagnosis: same Surgeon: Mckinley Tompkins MD Scaffold Builder(s): see or sheet Procedure: lap olay Findings: distended gallbladder with stones Complications: none Specimen(s) removed: gallbladder Estimated blood loss: 5cc Anesthesia: General Drains: None IVF (1000) Patient to: PACU Patient Condition: Good Mckinley Tompkins MD Apr 22, 2017 11:08
[2017-04-22] MEDS ORDERED: DO NOT ADM ANY ANTICOAGULANT DRUGS PRN (11:25)
[2017-04-22] MEDS ORDERED: fentaNYL CITRATE 250 MCG/5 ML AMP ONE (11:30)
[2017-04-22] MEDS ORDERED: *morphine SULFATE 8 MG/ML PERIprocedure ONLY ONE ×3 (11:46→12:26)
[2017-04-22] MEDS ORDERED: PROPOFOL 200 MG/20 ML AMP IV ONE (12:00)
[2017-04-22] MEDS ORDERED: LACTATED RINGER'S 1000 ML INJ 1,000 ML IV ONE (12:00)
[2017-04-22] MEDS ORDERED: ONDANSETRON HCL 4 MG/2 ML VIAL IV PUSH ONE (12:00)
[2017-04-22] MEDS ORDERED: *HYDROmorphone PF 1 MG VIAL PERIprocedural Use ONLY ONE (12:47)
--- NOTE | 2017-04-22 12:59 | HHI.PR ---
Subjective Remarks seen in PACU post op awake and alert, no pain complains or nausea at this moment Objective Vitals Vital Signs Date Time Temp Pulse Resp B/P Pulse Ox O2 Delivery O2 Flow Rate FiO2 04/22/17 11:24 98.4 100 12 117/58 99 Nasal Cannula 3 04/22/17 08:10 98.1 72 16 108/65 97 04/22/17 05:25 97.9 74 18 130/74 97 04/21/17 20:54 98.1 78 18 136/69 97 04/21/17 16:55 98.5 92 12 120/74 98 Room Air I/O 04/21/17 04/21/17 04/21/17 04/22/17 04/22/17 04/22/17 07:00 15:00 23:00 07:00 15:00 23:00 Intake Total 700 ml 1100 ml Output Total 5 ml 50 ml Balance 695 ml 1050 ml Intake Other 700 ml 1100 ml Estimated Blood Loss 5 ml 50 ml # Voids 1 1 Result Diagram: 04/22/17 0835 04/22/17 0835 Imaging Last Impressions GI Procedure 04/21/17 0000 Signed Impressions: Service Date/Time: Friday, April 21, 2017 16:22 - CONCLUSION: ERCP as above. Vimal Almazan MD Abdomen/Pelvis CT 04/20/17 1741 Signed Impressions: Service Date/Time: Thursday, April 20, 2017 19:14 - CONCLUSION: 1. Intrahepatic and extrahepatic biliary dilatation secondary to a 4 mm common bile duct stone at the level of the ampulla. Multiple calcified gallstones are seen. 2. Multiple low-density masses involving the uterus likely related to fibroids. These can be further assessed with pelvic sonography. James Wilder Jr., MD Objective Remarks awake and alert, NAD, ff commands anicteric lungs decreased breath sousnds, no rales regular rhythm abdomen- soft, mild tenderness post op site, sterile strips in place, + bowel sounds extremities no edema moves all extremities Procedures 04/22- laparoscopic cholecystectomy A/P Assessment and Plan 42 years old female S/P Laparoscopic cholecystectomy 04/22 -GS/GI ff - prn pain meds. - LFTs in am Hypokalemia- K in IVF - BMP in am DVT prophylaxiswith SCD. IV PPI April Hoffmann MD Apr 22, 2017 12:59
[2017-04-22] MEDS: HYDROmorphone HCL PF 1 MG/ML VIAL IV PUSH PRN ×2 (15:52→20:43)
[2017-04-22 16:00] VITALS: BP 126/69; PULSE 73; RESP 16; TEMP 98.2; O2SAT 95
--- NOTE | 2017-04-22 16:32 | HHI.GIFU ---
Subjective Remarks Pt resting in bed, just back from lap olya. Has some abd soreness. No n/v. Objective Vitals I&O Vital Signs Date Time Temp Pulse Resp B/P Pulse Ox O2 Delivery O2 Flow Rate FiO2 04/22/17 16:00 98.2 73 16 126/69 95 04/22/17 13:30 98.5 70 12 118/64 99 Room Air 04/22/17 12:30 83 12 124/63 99 Room Air 04/22/17 12:15 77 12 126/69 99 Nasal Cannula 2 04/22/17 12:00 79 12 121/66 99 Nasal Cannula 2 04/22/17 11:45 80 12 125/64 99 Nasal Cannula 2 04/22/17 11:24 98.4 100 12 117/58 99 Nasal Cannula 3 04/22/17 08:10 98.1 72 16 108/65 97 04/22/17 05:25 97.9 74 18 130/74 97 04/21/17 20:54 98.1 78 18 136/69 97 04/21/17 16:55 98.5 92 12 120/74 98 Room Air I/O 04/21/17 04/21/17 04/21/17 04/22/17 04/22/17 04/22/17 07:00 15:00 23:00 07:00 15:00 23:00 Intake Total 700 ml 1100 ml Output Total 5 ml 50 ml Balance 695 ml 1050 ml Intake Other 700 ml 1100 ml Estimated Blood Loss 5 ml 50 ml # Voids 1 1 Laboratory Laboratory Tests Test 04/22/17 08:35 White Blood Count 4.1 Red Blood Count 4.10 Hemoglobin 11.9 Hematocrit 35.2 Mean Corpuscular Volume 85.9 Mean Corpuscular Hemoglobin 29.1 Mean Corpuscular Hemoglobin 33.8 Concent Red Cell Distribution Width 12.6 Platelet Count 264 Mean Platelet Volume 7.9 Neutrophils (%) (Auto) 62.6 Lymphocytes (%) (Auto) 25.0 Monocytes (%) (Auto) 10.5 Eosinophils (%) (Auto) 1.3 Basophils (%) (Auto) 0.6 Neutrophils # (Auto) 2.6 Lymphocytes # (Auto) 1.0 Monocytes # (Auto) 0.4 Eosinophils # (Auto) 0.1 Basophils # (Auto) 0.0 CBC Comment DIFF FINAL Differential Comment Sodium Level 142 Potassium Level 3.6 Chloride Level 105 Carbon Dioxide Level 31.6 Anion Gap 5 Blood Urea Nitrogen 6 Creatinine 0.64 Estimat Glomerular Filtration 103 Rate Random Glucose 134 Calcium Level 9.1 Total Bilirubin 3.4 Aspartate Amino Transf 63 (AST/SGOT) Alanine Aminotransferase 126 (ALT/SGPT) Alkaline Phosphatase 175 Total Protein 6.6 Albumin 3.2 Imaging Last Impressions GI Procedure 04/21/17 0000 Signed Impressions: Service Date/Time: Friday, April 21, 2017 16:22 - CONCLUSION: ERCP as above. Vimal Almazan MD Abdomen/Pelvis CT 04/20/17 1741 Signed Impressions: Service Date/Time: Thursday, April 20, 2017 19:14 - CONCLUSION: 1. Intrahepatic and extrahepatic biliary dilatation secondary to a 4 mm common bile duct stone at the level of the ampulla. Multiple calcified gallstones are seen. 2. Multiple low-density masses involving the uterus likely related to fibroids. These can be further assessed with pelvic sonography. James Wilder Jr., MD Physical Exam HEENT: PERRL; normocephalic; atraumatic; +icterus CHEST: CTA CARDIAC: RRR ABDOMEN: Soft, nondistended, mild TTP, multiple steris clean; no hepatosplenomegaly; bowel sounds are present in all four quadrants. EXTREMITIES: No clubbing, cyanosis, or edema. SKIN: Normal; no rash; mild jaundice MOTORS ASSEMBLER: No focal deficits; alert and oriented times three. Assessment and Plan Plan ASSESSMENT: - Biliary obstruction, Choledocholithiasis. Abdominal pain associated with food intake since April 13. Started having pruritus on Wednesday. Was told that she was jaundiced and instructed to go to the ER. Abdomen/ Pelvis CT (04/20/17)----> 1. Intrahepatic and extrahepatic biliary dilatation secondary to a 4 mm common bile duct stone at the level of the ampulla. Multiple calcified gallstones are seen. 2. Multiple low- density masses involving the uterus likely related to fibroids. These can be further assessed with pelvic sonography. She was also noted to have elevated LFTs with T. Bili 5.4, AST 561, ALT 150, Alk Phosph 195, Lipase 119, WBC 4.9. No history of gallbladder issues. s/p ERCP report pending. s/p lap olya - Elevated LFTs secondary to above. trending down. - Cholelithiasis. s/lp lap olya - Abdominal pain secondary to above. Pain management per attending - Constipation. PLAN: - Pain management per attending - diet per GS - monitor labs - Supportive care - Pt seen and examined by Dr. Jean and myself and this note is written on his behalf Chel Pennington Apr 22, 2017 16:32
--- NOTE | 2017-04-22 18:02 | MP ---
cc: MCKINLEY TOMPKINS MD DATE OF SURGERY 04/22/2017 PREOPERATIVE DIAGNOSIS Choledocholithiasis with symptomatic cholelithiasis. POSTOPERATIVE DIAGNOSIS Choledocholithiasis with symptomatic cholelithiasis. PROCEDURE PERFORMED Laparoscopic cholecystectomy. SURGEON Dr. Mckinley Tompkins. SCREW MACHINE SETTER See OR sheet. ANESTHESIA GETA. IV FLUIDS 1000 cc. ESTIMATED BLOOD LOSS 5 cc. DRAINS None. COMPLICATIONS None. CONSULTATION Clean, contaminated. SPECIMENS Gallbladder. FINDINGS A distended gallbladder with multiple gallstones. INDICATION The patient is a 42-year-old female who presents with acute onset of abdominal pain. She had further workup including ultrasound showing a stone in her common bile duct. The patient underwent ERCP with stone extraction. She had a repeat workup with labs with a trending down. Therefore post ERCP decision was made for laparoscopic cholecystectomy. Discussed with the patient in detail. DETAILS OF PROCEDURE The patient was taken to the operating suite, placed in supine position. She was prepped and draped in the usual sterile fashion after induction of general endotracheal anesthesia. Brief time-out done stating correct patient, procedure, surgical site, were all in agreement with this. Attention was directed to the umbilicus. A stab carly incision made. Veress needle placed intra-abdominal placement confirmed saline drop test. Abdomen insufflated to 15 mm pneumoperitoneum. On inspection no evidence of injury. Three other ports placed one 12 epigastric port followed by two 5 mm ports. The patient then placed in reverse Trendelenburg and airplaned to the left. The gallbladder was identified, noted to be significantly distended and dilated. An Endo needle used to remove 160 cc of bile from the gallbladder. The gallbladder retracted cephalad. The cystic duct and cystic artery were dissected out in the usual manner with electro Bovie cautery and [place] grasper. The cystic duct was noted to be somewhat enlarged. Three clips were placed proximal and one distal. EndoShears were used to transect the cystic duct, two clips were placed proximal on the cystic artery, one distal. EndoShears were used to transect the cystic artery. These were the only structures going into the gallbladder. Electro bovie cautery used to dissect the gallbladder from the gallbladder fossa. Hemostasis was obtained. Gallbladder placed in the EndoCatch bag. Gallbladder was removed from the epigastric port. Suction irrigation used. Electro bovie cautery used for hemostasis. No evidence of bile leak and no bleeding. The abdomen then desufflated and trocars were removed and the epigastric port was closed with 0 Vicryl suture to the fascia. All ports were closed with 4-0 Monocryl sutures. The patient tolerated the procedure well. There was no intraoperative complications. The patient was extubated and taken to the PACU. All lap and instrument counts were correct at the end of the procedure. MD REX Begum/EO /3:14 PM /5:48 PM
[2017-04-22] MEDS: PANTOPRAZOLE SODIUM 40 MG VIAL IV PUSH SCH (18:39)
[2017-04-22 20:00] VITALS: BP 131/76; PULSE 84; RESP 16; TEMP 99; O2SAT 97
[2017-04-23] VITALS: BP 131/83; PULSE 74; RESP 16; TEMP 98.7; O2SAT 97
[2017-04-23] MEDS: HYDROmorphone HCL PF 1 MG/ML VIAL IV PUSH PRN ×2 (01:49→09:50)
[2017-04-23 06:10] LABS: AUTOMATED NEUTROPHIL # 3.7 TH/MM3 (1.8-7.7); BASOPHIL % 0.7 % (0.0-2.0); EOSINOPHIL % 0.4 % (0.0-4.0); HEMATOCRIT 33.3 % (35.0-46.0); HEMO FLAGS DIFF FINAL; LYMPH % 28.2 % (9.0-44.0); LYMPHOCYTE # 1.7 TH/MM3 (1.0-4.8); MEAN CELL VOLUME 87.9 FL (80.0-100.0); MEAN CORPUSCULAR HEMOGLOBIN 28.5 PG (27.0-34.0); MEAN CORPUSCULAR HGB CONC 32.4 % (32.0-36.0); MONO % 9.8 % (0.0-8.0); NEUT % 60.9 % (16.0-70.0); PLATELET COUNT 250 TH/MM3 (150-450); RED BLOOD COUNT 3.79 MIL/MM3 (4.00-5.30); WHITE BLOOD COUNT 6.2 TH/MM3 (4.0-11.0)
[2017-04-23 06:30] LABS: ALT (GPT) 131 U/L (10-53); ANION GAP 7 MEQ/L (5-15); AST (GOT) 69 U/L (15-37); BLOOD UREA NITROGEN 3 MG/DL (7-18); CHLORIDE 107 MEQ/L (98-107); GLOMERULAR FILTRATION RATE 117 ML/MIN (>89); POTASSIUM 3.4 MEQ/L (3.5-5.1); SODIUM (NA) 141 MEQ/L (136-145)
[2017-04-23] MEDS: D5-NS + KCL 20 MEQ INJ 1,000 ML IV SCH ×2 (06:32→16:10)
[2017-04-23 06:33] LABS: ALKALINE PHOSPHATASE 175 U/L (45-117)
[2017-04-23 08:00] VITALS: BP 124/78; PULSE 70; RESP 16; TEMP 98.9; O2SAT 96
[2017-04-23] MEDS: SODIUM CHLORIDE 0.9% FLUSH 10 ML FLUSH IV FLUSH SCH ×2 (08:32→19:40)
[2017-04-23] MEDS ORDERED: POTASSIUM CHLORIDE 10 MEQ CONTROLLED RELEASE TAB PO ONE (09:15)
--- NOTE | 2017-04-23 09:20 | HHI.PR ---
Subjective Remarks "starving" poositive lots of flatus, voiding spontaneously mild abdominal discomfort Objective Vitals Vital Signs Date Time Temp Pulse Resp B/P Pulse Ox O2 Delivery O2 Flow Rate FiO2 04/23/17 08:00 98.9 70 16 124/78 96 04/23/17 00:00 98.7 74 16 131/83 97 04/22/17 20:00 99.0 84 16 131/76 97 04/22/17 16:00 98.2 73 16 126/69 95 04/22/17 13:30 98.5 70 12 118/64 99 Room Air 04/22/17 12:30 83 12 124/63 99 Room Air 04/22/17 12:15 77 12 126/69 99 Nasal Cannula 2 04/22/17 12:00 79 12 121/66 99 Nasal Cannula 2 04/22/17 11:45 80 12 125/64 99 Nasal Cannula 2 04/22/17 11:24 98.4 100 12 117/58 99 Nasal Cannula 3 I/O 04/22/17 04/22/17 04/22/17 04/23/17 04/23/17 04/23/17 07:00 15:00 23:00 07:00 15:00 23:00 Intake Total 1100 ml 240 ml 1460 ml Output Total 50 ml Balance 1050 ml 240 ml 1460 ml Intake Oral 240 ml 480 ml IV Total 980 ml Other 1100 ml Estimated Blood Loss 50 ml # Voids 2 2 # Bowel Movements 0 0 Result Diagram: 04/23/17 0515 04/23/17 0515 Imaging Last Impressions GI Procedure 04/21/17 0000 Signed Impressions: Service Date/Time: Friday, April 21, 2017 16:22 - CONCLUSION: ERCP as above. Vimal Almazan MD Abdomen/Pelvis CT 04/20/17 1741 Signed Impressions: Service Date/Time: Thursday, April 20, 2017 19:14 - CONCLUSION: 1. Intrahepatic and extrahepatic biliary dilatation secondary to a 4 mm common bile duct stone at the level of the ampulla. Multiple calcified gallstones are seen. 2. Multiple low-density masses involving the uterus likely related to fibroids. These can be further assessed with pelvic sonography. James Wilder Jr., MD Objective Remarks awake and alert, NAD, ff commands anicteric lungs - no rales or wheezes regular rhythm abdomen- soft, + bowel sounds, mild tenderness lower abdominal area extremities no edema moves all extremities , gait steady Procedures 04/22- laparoscopic cholecystectomy A/P Assessment and Plan 42 years old female S/P Laparoscopic cholecystectomy 04/22 -GS/GI ff - prn pain meds. - advance diet per GS -Incentive spirometry Elevated LFTs- stabilizing- -hepatitis panel negative -OP ff up with GI Hypokalemia- K in IVF - replace po DVT prophylaxis- patient up and ambulating DC if cleared with GS April Hoffmann MD Apr 23, 2017 09:20
[2017-04-23] MEDS: ACETAMINOPHEN/HYDROcodone 325 MG/5 MG TAB PO PRN ×3 (14:36→23:23)
--- NOTE | 2017-04-23 15:57 | HHI.GIFU ---
Subjective Remarks Pt resting in bed, about to order first solid meal. No nausea. Objective Vitals I&O Vital Signs Date Time Temp Pulse Resp B/P Pulse Ox O2 Delivery O2 Flow Rate FiO2 04/23/17 08:00 98.9 70 16 124/78 96 04/23/17 00:00 98.7 74 16 131/83 97 04/22/17 20:00 99.0 84 16 131/76 97 04/22/17 16:00 98.2 73 16 126/69 95 I/O 04/22/17 04/22/17 04/22/17 04/23/17 04/23/17 04/23/17 06:59 14:59 22:59 06:59 14:59 22:59 Intake Total 1100 ml 1700 ml 1408 ml Output Total 50 ml Balance 1050 ml 1700 ml 1408 ml Intake Oral 720 ml 1080 ml IV Total 980 ml 328 ml Other 1100 ml Estimated Blood Loss 50 ml # Voids 4 3 # Bowel Movements 0 0 Laboratory Laboratory Tests Test 04/23/17 05:15 White Blood Count 6.2 Red Blood Count 3.79 Hemoglobin 10.8 Hematocrit 33.3 Mean Corpuscular Volume 87.9 Mean Corpuscular Hemoglobin 28.5 Mean Corpuscular Hemoglobin 32.4 Concent Red Cell Distribution Width 13.0 Platelet Count 250 Mean Platelet Volume 8.1 Neutrophils (%) (Auto) 60.9 Lymphocytes (%) (Auto) 28.2 Monocytes (%) (Auto) 9.8 Eosinophils (%) (Auto) 0.4 Basophils (%) (Auto) 0.7 Neutrophils # (Auto) 3.7 Lymphocytes # (Auto) 1.7 Monocytes # (Auto) 0.6 Eosinophils # (Auto) 0.0 Basophils # (Auto) 0.0 CBC Comment DIFF FINAL Differential Comment Sodium Level 141 Potassium Level 3.4 Chloride Level 107 Carbon Dioxide Level 27.0 Anion Gap 7 Blood Urea Nitrogen 3 Creatinine 0.57 Estimat Glomerular Filtration 117 Rate Random Glucose 123 Calcium Level 8.5 Total Bilirubin 3.0 Aspartate Amino Transf 69 (AST/SGOT) Alanine Aminotransferase 131 (ALT/SGPT) Alkaline Phosphatase 175 Total Protein 6.4 Albumin 3.0 Lipase 183 Imaging Last Impressions GI Procedure 04/21/17 0000 Signed Impressions: Service Date/Time: Friday, April 21, 2017 16:22 - CONCLUSION: ERCP as above. Vimal Almazan MD Abdomen/Pelvis CT 04/20/17 1741 Signed Impressions: Service Date/Time: Thursday, April 20, 2017 19:14 - CONCLUSION: 1. Intrahepatic and extrahepatic biliary dilatation secondary to a 4 mm common bile duct stone at the level of the ampulla. Multiple calcified gallstones are seen. 2. Multiple low-density masses involving the uterus likely related to fibroids. These can be further assessed with pelvic sonography. James Wilder Jr., MD Physical Exam HEENT: PERRL; normocephalic; atraumatic; + mild icterus CHEST: CTA CARDIAC: RRR ABDOMEN: Soft, nondistended, mild TTP, multiple steris clean; no hepatosplenomegaly; bowel sounds are present in all four quadrants. EXTREMITIES: No clubbing, cyanosis, or edema. SKIN: Normal; no rash PROSPECTING DRILLER: No focal deficits; alert and oriented times three. Assessment and Plan Plan ASSESSMENT: - Biliary obstruction, Choledocholithiasis. Abdominal pain associated with food intake since April 13. Started having pruritus on Wednesday. Was told that she was jaundiced and instructed to go to the ER. Abdomen/ Pelvis CT (04/20/17)----> 1. Intrahepatic and extrahepatic biliary dilatation secondary to a 4 mm common bile duct stone at the level of the ampulla. Multiple calcified gallstones are seen. 2. Multiple low- density masses involving the uterus likely related to fibroids. These can be further assessed with pelvic sonography. She was also noted to have elevated LFTs with T. Bili 5.4, AST 561, ALT 150, Alk Phosph 195, Lipase 119, WBC 4.9. No history of gallbladder issues. s/p ERCP with sphincterotomy, papillotomy 04-21-17--> 5mm stone distal CBD, removed. s/p lap olya - Elevated LFTs secondary to above. trending down subtly. - Cholelithiasis. s/lp lap olya - Abdominal pain secondary to above. Pain management per attending - Constipation. PLAN: - Pain management per attending - diet per GS - monitor labs - Supportive care - Pt seen and examined by Dr. Jean and myself and this note is written on his behalf Chel PenningtonP Apr 23, 2017 15:56
[2017-04-23 16:00] VITALS: BP 113/76; PULSE 73; RESP 17; TEMP 99.4; O2SAT 97
[2017-04-23] MEDS: PANTOPRAZOLE SODIUM 40 MG VIAL IV PUSH SCH (17:33)
--- NOTE | 2017-04-23 17:37 | HHI.PR ---
Subjective Subjective Notes Resting in bed Hungry Objective Vitals/I&O Vital Signs Date Time Temp Pulse Resp B/P Pulse Ox O2 Delivery O2 Flow Rate FiO2 04/23/17 16:00 99.4 73 17 113/76 97 04/22/17 13:30 Room Air 04/22/17 12:15 2 Labs Laboratory Tests Test 04/23/17 05:15 White Blood Count 6.2 Red Blood Count 3.79 Hemoglobin 10.8 Hematocrit 33.3 Mean Corpuscular Volume 87.9 Mean Corpuscular Hemoglobin 28.5 Mean Corpuscular Hemoglobin 32.4 Concent Red Cell Distribution Width 13.0 Platelet Count 250 Mean Platelet Volume 8.1 Neutrophils (%) (Auto) 60.9 Lymphocytes (%) (Auto) 28.2 Monocytes (%) (Auto) 9.8 Eosinophils (%) (Auto) 0.4 Basophils (%) (Auto) 0.7 Neutrophils # (Auto) 3.7 Lymphocytes # (Auto) 1.7 Monocytes # (Auto) 0.6 Eosinophils # (Auto) 0.0 Basophils # (Auto) 0.0 CBC Comment DIFF FINAL Differential Comment Sodium Level 141 Potassium Level 3.4 Chloride Level 107 Carbon Dioxide Level 27.0 Anion Gap 7 Blood Urea Nitrogen 3 Creatinine 0.57 Estimat Glomerular Filtration 117 Rate Random Glucose 123 Calcium Level 8.5 Total Bilirubin 3.0 Aspartate Amino Transf 69 (AST/SGOT) Alanine Aminotransferase 131 (ALT/SGPT) Alkaline Phosphatase 175 Total Protein 6.4 Albumin 3.0 Lipase 183 Radiology Last 48 hours Impressions Abdomen/Pelvis CT 04/20/17 1741 Signed Impressions: Service Date/Time: Thursday, April 20, 2017 19:14 - CONCLUSION: 1. Intrahepatic and extrahepatic biliary dilatation secondary to a 4 mm common bile duct stone at the level of the ampulla. Multiple calcified gallstones are seen. 2. Multiple low-density masses involving the uterus likely related to fibroids. These can be further assessed with pelvic sonography. James Wilder Jr., MD Cardiovascular: Regular Lungs: Clear Abdomen: Other (lap sites c/d/i ), Post-op tenderness Extremities: No edema A/P Assessment and Plan 42 year old female s/p ERCP with removal on stone; POD1 lap olya -Advance to regular diet -Check CMP in am; bilirubin still elevated -OOB -IS -Likely DC home tomorrow if bilirubin trends down Kasie,Kate B. [employer]SUMER MARKETING ANALYST Apr 23, 2017 17:37
[2017-04-23 20:00] VITALS: BP 116/69; PULSE 81; RESP 18; TEMP 99.7; O2SAT 94
[2017-04-24] VITALS: BP 135/67; PULSE 61; RESP 18; TEMP 99.5; O2SAT 99
[2017-04-24] MEDS: D5-NS + KCL 20 MEQ INJ 1,000 ML IV SCH (04:22)
[2017-04-24] MEDS: ACETAMINOPHEN/HYDROcodone 325 MG/5 MG TAB PO PRN ×2 (07:13→11:45)
[2017-04-24 08:00] VITALS: BP 129/76; PULSE 63; RESP 12; TEMP 97.8; O2SAT 96
[2017-04-24 08:04] LABS: AUTOMATED NEUTROPHIL # 4.1 TH/MM3 (1.8-7.7); BASOPHIL % 0.7 % (0.0-2.0); EOSINOPHIL # 0.1 TH/MM3 (0-0.4); HEMATOCRIT 35.4 % (35.0-46.0); HEMO FLAGS DIFF FINAL; LYMPH % 25.3 % (9.0-44.0); LYMPHOCYTE # 1.6 TH/MM3 (1.0-4.8); MEAN CELL VOLUME 88.8 FL (80.0-100.0); MEAN CORPUSCULAR HEMOGLOBIN 29.1 PG (27.0-34.0); MEAN CORPUSCULAR HGB CONC 32.7 % (32.0-36.0); MONO % 8.3 % (0.0-8.0); NEUT % 64.7 % (16.0-70.0); PLATELET COUNT 267 TH/MM3 (150-450); RED BLOOD COUNT 3.98 MIL/MM3 (4.00-5.30); RED CELL DISTRIBUTION WIDTH 13.1 % (11.6-17.2); WHITE BLOOD COUNT 6.3 TH/MM3 (4.0-11.0)
[2017-04-24 08:23] LABS: ALT (GPT) 109 U/L (10-53); ANION GAP 8 MEQ/L (5-15); AST (GOT) 34 U/L (15-37); BICARBONATE 26.4 MEQ/L (21.0-32.0); BLOOD UREA NITROGEN 5 MG/DL (7-18); CHLORIDE 108 MEQ/L (98-107); POTASSIUM 3.7 MEQ/L (3.5-5.1); SODIUM (NA) 142 MEQ/L (136-145)
[2017-04-24 08:25] LABS: ALKALINE PHOSPHATASE 169 U/L (45-117); GLOMERULAR FILTRATION RATE 109 ML/MIN (>89); TOTAL BILIRUBIN ADULT 1.8 MG/DL (0.2-1.0)
[2017-04-24] MEDS: SODIUM CHLORIDE 0.9% FLUSH 10 ML FLUSH IV FLUSH SCH (09:00)
--- NOTE | 2017-04-24 10:35 | HHI.PR ---
Subjective Remarks no nausea or vomiting tolerating po "not as sore" + faltus Objective Vitals Vital Signs Date Time Temp Pulse Resp B/P Pulse Ox O2 Delivery O2 Flow Rate FiO2 04/24/17 08:00 97.8 63 12 129/76 96 04/24/17 00:00 99.5 61 18 135/67 99 04/23/17 20:00 99.7 81 18 116/69 94 04/23/17 16:00 99.4 73 17 113/76 97 I/O 04/23/17 04/23/17 04/23/17 04/24/17 04/24/17 04/24/17 07:00 15:00 23:00 07:00 15:00 23:00 Intake Total 1460 ml 1408 ml 483 ml 1029 ml Balance 1460 ml 1408 ml 483 ml 1029 ml Intake Oral 480 ml 1080 ml 360 ml IV Total 980 ml 328 ml 483 ml 669 ml # Voids 2 3 3 # Bowel Movements 0 0 0 3 Result Diagram: 04/24/17 0718 04/24/17 0718 Imaging Last Impressions GI Procedure 04/21/17 0000 Signed Impressions: Service Date/Time: Friday, April 21, 2017 16:22 - CONCLUSION: ERCP as above. Vimal Almazan MD Abdomen/Pelvis CT 04/20/17 1741 Signed Impressions: Service Date/Time: Thursday, April 20, 2017 19:14 - CONCLUSION: 1. Intrahepatic and extrahepatic biliary dilatation secondary to a 4 mm common bile duct stone at the level of the ampulla. Multiple calcified gallstones are seen. 2. Multiple low-density masses involving the uterus likely related to fibroids. These can be further assessed with pelvic sonography. James Wilder Jr., MD Objective Remarks awake and alert, NAD, ff commands anicteric lungs - no rales or wheezes regular rhythm abdomen- soft, + bowel sounds, good bowel sounds, sterile strips in place, post incision sites- dry, no erythema extremities no edema moves all extremities ,neuro stable Procedures 04/22- laparoscopic cholecystectomy A/P Assessment and Plan 42 years old female S/P Laparoscopic cholecystectomy 04/22 -GS/GI ff - prn pain meds. - advance diet toelrating -Incentive spirometry Elevated LFTs- stabilizing- -hepatitis serology negative -OP ff up with GS/GI Hypokalemia-resolved DVT prophylaxis- patient up and ambulating medically stable for DC today after seen by GS advise OP ff up with a PCP- health maintenance OP ff up with GS OP ff up with PCP recheck LFTs as OP April Hoffmann MD Apr 24, 2017 10:35
[2017-04-24] MEDS ORDERED: NORC5TAB PO (13:14)
--- NOTE | 2017-04-24 13:17 | HHI.PR ---
Subjective Subjective Notes Feeling better; tolerating diet Objective Vitals/I&O Vital Signs Date Time Temp Pulse Resp B/P Pulse Ox O2 Delivery O2 Flow Rate FiO2 04/24/17 08:00 97.8 63 12 129/76 96 04/22/17 13:30 Room Air 04/22/17 12:15 2 Labs Laboratory Tests Test 04/24/17 07:18 White Blood Count 6.3 Red Blood Count 3.98 Hemoglobin 11.6 Hematocrit 35.4 Mean Corpuscular Volume 88.8 Mean Corpuscular Hemoglobin 29.1 Mean Corpuscular Hemoglobin 32.7 Concent Red Cell Distribution Width 13.1 Platelet Count 267 Mean Platelet Volume 7.8 Neutrophils (%) (Auto) 64.7 Lymphocytes (%) (Auto) 25.3 Monocytes (%) (Auto) 8.3 Eosinophils (%) (Auto) 1.0 Basophils (%) (Auto) 0.7 Neutrophils # (Auto) 4.1 Lymphocytes # (Auto) 1.6 Monocytes # (Auto) 0.5 Eosinophils # (Auto) 0.1 Basophils # (Auto) 0.0 CBC Comment DIFF FINAL Differential Comment Sodium Level 142 Potassium Level 3.7 Chloride Level 108 Carbon Dioxide Level 26.4 Anion Gap 8 Blood Urea Nitrogen 5 Creatinine 0.61 Estimat Glomerular Filtration 109 Rate Random Glucose 127 Calcium Level 8.8 Total Bilirubin 1.8 Aspartate Amino Transf 34 (AST/SGOT) Alanine Aminotransferase 109 (ALT/SGPT) Alkaline Phosphatase 169 Total Protein 6.9 Albumin 3.1 Radiology Last 48 hours Impressions Abdomen/Pelvis CT 04/20/17 1741 Signed Impressions: Service Date/Time: Thursday, April 20, 2017 19:14 - CONCLUSION: 1. Intrahepatic and extrahepatic biliary dilatation secondary to a 4 mm common bile duct stone at the level of the ampulla. Multiple calcified gallstones are seen. 2. Multiple low-density masses involving the uterus likely related to fibroids. These can be further assessed with pelvic sonography. James Wilder Jr., MD Lungs: Clear Abdomen: Non-distended Narrative Exam Steristrips dry and intact A/P Assessment and Plan Assessment and Plan 42 year old female s/p ERCP 4 days ago with removal of stone; POD2 lap olya -Tolerating regular diet -Bilirubin trending down -OOB -IS -D/C home -Script in chart -Instructions given -Return to work after office visit this week Terry,Samson. MD Apr 24, 2017 13:17
[2017-04-24] MEDS ORDERED: HYDROmorphone HCL PF 1 MG/ML VIAL IV PUSH PRN (14:30)
== END 2017-04-24 13:59 | disposition home or self-care (01) | DRG 419 ==
LOC: PHED 17:20 → PHEDA 20:24 → INTOOBSV 20:24 → NEPFCDU 23:40 → OBSVTOIN 04-21 06:15 → N07B 04-22 10:46
PROVIDERS: ADMIT Internal Medicine; ATTEND Internal Medicine
PROC: 0FC98ZZ Extirpation of Matter from Common Bile Duct, Via Natural or Artificial Opening Endoscopic (ICD-10-PCS; 2017-04-21)
PROC: BF101ZZ Fluoroscopy of Bile Ducts using Low Osmolar Contrast (ICD-10-PCS; 2017-04-21)
PROC: 0FT44ZZ Resection of Gallbladder, Percutaneous Endoscopic Approach (ICD-10-PCS; principal; 2017-04-22 09:42)
DX: K80.61 Calculus of gallbladder and bile duct with cholecystitis, unspecified, with obstruction (principal); D25.9 Leiomyoma of uterus, unspecified; E87.6 Hypokalemia; Z87.891 Personal history of nicotine dependence; K59.00 Constipation, unspecified
CPT/HCPCS: 74177; 74330; 80053; 80074; 81001; 82140; 83690; 85025; 85610; 85730; 88304; C1769; C9113; G0378; J0131; J0690; J1170; J2270; J2405; J3010; J3480; J7030; J7120; Q9967